=== PATIENT | male | born 1995 | race Caucasian/White ===

== ENCOUNTER 2017-10-25 14:49 | Emergency (ER) | payer OTHER ==
--- NOTE | 2017-10-25 15:06 | ED Physician Documentation ---
General Adult - HISTORIAN Historian: patient - HPI Stated Complaint: sore throat Chief Complaint: General Adult Onset: days ago Timing: still present Severity: moderate Further Comments: yes (Pt is a 22 yo male with a sore throat. Pt has had dark sputum, malaise. No fever.) - ROS CONST: other (malaise) EYES/ENT: sore throat CVS/RESP: cough GI/: none MS/SKIN/LYMPH: none - PAST HX Past History: other (tonsillectomy) - SOCIAL HX Smoking History: cigarettes - FAMILY HX Family History: No - REVIEWED ASSESSMENTS Nursing Assessment Reviewed: Yes Vitals Reviewed: Yes Progress - Progress Progress: Rx [id number] General Adult Physical Exam - PHYSICAL EXAM GENERAL APPEARANCE: mild distress EENT: pharyngeal erythema NECK: normal inspection, supple RESPIRATORY: no resp distress, chest non-tender, breath sounds normal CVS: reg rate & rhythm, heart sounds normal BACK: normal inspection SKIN: warm/dry, normal color EXTREMITIES: non-tender, normal range of motion, no evidence of injury NEURO: oriented X3, motor nml, sensation nml Discharge Clincal Impression: URI (upper respiratory infection) Qualifiers: URI type: unspecified URI Qualified Code(s): J06.9 - Acute upper respiratory infection, unspecified Referrals: Primary Doctor,No [Primary Care Provider] - Condition: Good Disposition: 01 HOME, SELF-CARE Decision to Admit: NO Decision Time: 15:16
[2017-10-25 15:24] VITALS: BP 158/88
== END 2017-10-25 15:22 | disposition home or self-care (01) ==
LOC: ED 14:49
DX: J06.9 Acute upper respiratory infection, unspecified (principal)
CPT/HCPCS: 87070; 87880; 99283

== ENCOUNTER 2017-11-16 11:44 | Emergency (ER) | payer OTHER ==
--- NOTE | 2017-11-16 11:51 | ED Physician Documentation ---
Upper Respiratory Symptoms - HISTORIAN Historian: patient - HPI Stated Complaint: cough Chief Complaint: Cough/ Upper Respiratory Onset: other (4 weeks now all together ) Duration: constant Context: denies: recent foreign travel, insect bite(s), tick(s), recent chemotherapy, multiple patients Severity: moderate Associated Symptoms: chills, sweating, sinus drainage (in the beginning of the illness ), sore throat (first week of illness ), productive cough, shortness of breath. denies: fever, earache, runny nose, sinus pain Worsened by Deep Breath: Yes Further Comments: yes (Per pt report over 4 weeks ago he started sinus pain and drainge. He reports he started to cough at this time and was seen in the ER. He states he was treated and he did finish the medication as directed. He states less than 24 hours after stopping the medications he started to cough again so he started the second round as he was advised. States he is a few days into the second dose and feels his cough is getting worse. He denies a fever but he has not measured it either. He also has known history of MRSA and has had a few more areas come out on his arm and head) - ROS CONST/EYES: denies: eye redness, eye itching CVS/RESP: shortness of breath. denies: chest pain LYMPH: denies: rash, swollen glands GI/: denies: abdominal pain, vomiting, nausea NEURO/PSYCH: denies: dizziness MS/SKIN: joint pain. denies: rash - PAST HX Lung Disease: none PE Risk Factors: none Surgeries/Procedures: none Immunizations: UTD Allergies/Adverse Reactions: Allergies Allergy/AdvReac Type Severity Reaction Status Date / Time sulfamethoxazole Allergy Verified 11/16/17 12:05 [From Bactrim] trimethoprim [From Bactrim] Allergy Verified 11/16/17 12:05 Home Medications: Ambulatory Orders Medication Instructions Recorded Azithromycin [Zithromax] 250 mg PO DAILY #6 tablet 11/13/17 Albuterol Sulfate [Proair HFA] 2 inh IH Q4-6 PRN #1 hfa.aer.ad 11/16/17 Benzonatate [Tessalon] 100 mg PO TID PRN #20 capsule 11/16/17 Methylprednisolone [Medrol] 4 mg PO D #1 tab.ds.pk 11/16/17 - SOCIAL HX Smoking History: non-smoker Alcohol Use: none Drug Use: none - FAMILY HX Family History: none - VITAL SIGNS Vital Signs: Vital Signs Temp Pulse Resp BP Pulse Ox 97.6 F 82 20 142/73 96 11/16/17 11:44 11/16/17 11:44 11/16/17 11:44 11/16/17 11:44 11/16/17 11:44 - REVIEWED ASSESSMENTS Nursing Assessment Reviewed: Yes Vitals Reviewed: Yes Progress - Progress Progress: Discussed lab and chest xray : Normal He has not been on terminologist asthma meds in a while Will need to follow up with PCP to start a treatment plan for asthma ED Results Lab/Radiology - Lab Results Lab Results: Lab Results 11/16/17 11/16/17 12:20 12:20 WBC 7.10 K/ul K/ul (4.00-12.00) RBC 5.67 M/ul H M/ul (3.90-5.20) Hgb 14.5 g/dL g/dL (12.0-18.0) Hct 42.8 % % (37.0-53.0) MCV 75.5 fl L fl (80.0-100.0) MCH 25.6 pg L pg (28.0-34.0) MCHC 33.9 g/dL g/dL (30.0-36.0) RDW 14.3 % % (11.3-14.3) Plt Count 201 K/mm3 K/mm3 (130-400) Neut % (Auto) 59.6 % % (39.0-79.0) Lymph % (Auto) 22.1 % % (16.0-50.0) [place] % (Auto) 10.4 % % (0.0-11.0) Eos % (Auto) 4.5 % % (0.0-6.8) Baso % (Auto) 1.1 (0.0-1.5) Neut # (Auto) 4.2 # k/uL # k/uL (1.4-7.7) Lymph # (Auto) 1.6 # k/uL # k/uL (0.6-4.0) [place] # (Auto) 0.7 # k/uL # k/uL (0.0-0.9) Eos # (Auto) 0.3 # k/uL # k/uL (0.0-0.6) Baso # (Auto) 0.1 # k/uL # k/uL (0.0-0.5) Reactive Lymphs % 2.3 % % (0.0-5.0) Reactive Lymphs # 0.2 # k/uL # k/uL (0.0-0.8) Sodium 135 mmol/L L mmol/L (136-145) Potassium 3.9 mmol/L mmol/L (3.5-5.1) Chloride 99 mmol/L mmol/L (98-107) Carbon Dioxide 28 mmol/L mmol/L (22-30) BUN 11 mg/dL mg/dL (9-20) Creatinine 1.00 mg/dL mg/dL (0.66-1.25) Estimated Creat Clear 563 Est GFR ( Amer) > 60 (60 - ) Est GFR (Non-Af Amer) > 60 (60 - ) Glucose 90 mg/dL mg/dL (74-106) Calcium 8.9 mg/dL mg/dL (8.4-10.2) Total Bilirubin 0.3 mg/dL mg/dL (0.2-1.3) AST 24 U/L U/L (15-46) ALT 59 U/L U/L (13-69) Alkaline Phosphatase 54 U/L U/L (38-126) Total Protein 6.5 g/dL g/dL (6.3-8.2) Albumin 4.0 g/dL g/dL (3.5-5.0) - Radiology Radiology Impressions: Examination: PA and lateral chest. History: Evaluate lung caputo. Findings: PA lateral chest demonstrate a normal cardiac and mediastinal silhouette. No focal infiltrate. No blunting of the costophrenic margins. Osseous structures are appropriate for age. Impression: No acute pulmonary process. Electronically signed on Nov 16, 2017 12:36:31 PM MANAGER DOMESTIC by: Saul Saunders - Orders Orders: ED Orders Category Date Time Status Place IV Lock 1T Care 11/16/17 12:02 Active CHEST 2 VIEW [CHEST P.A.&LAT 2 VIEWS] [RAD] Stat Exams 11/16/17 12:02 Ordered CBC/PLATELET/DIFF Stat Lab 11/16/17 12:20 Completed CMP Stat Lab 11/16/17 12:20 Completed Ipratropium/Albuterol Sulfate [Duoneb] Med 11/16/17 12:02 Discontinued 3 ml NEB NOW ONE Upper Respiratory Symptoms - EXAM General Appearance: no acute distress EENT: eyes nml inspection Respiratory: no resp. distress, rhonchi (lower lobe bilateral with mild expiratory wheezing ) Abdomen: non-tender CVS: reg rate & rhythm, heart sounds normal, equal pulses, no murmur Skin: color nml, no rash, warm,dry Extremities: non-tender, normal range of motion Neuro/Psych: oriented x3, neuro intact, mood/affect nml Discharge Clincal Impression: Asthma Qualifiers: Asthma severity: moderate Asthma persistence: persistent Asthma complication type: with acute exacerbation Qualified Code(s): J45.41 - Moderate persistent asthma with (acute) exacerbation Prescriptions: Albuterol Sulfate [Proair HFA] 2 inh IH Q4-6 PRN #1 hfa.aer.ad PRN Reason: Cough Benzonatate [Tessalon] 100 mg PO TID PRN #20 capsule PRN Reason: Cough Methylprednisolone [Medrol] 4 mg PO D #1 tab.ds.pk Referrals: Primary Doctor,No [Primary Care Provider] - 2 Days Additional Instructions: Medrol dose pack as directed Tessalon Pears as directed Increase fluids Proair inhaler as directed Est care with PCP for terminologist asthma treatment plan [phone] Condition: Stable Disposition: 01 HOME, SELF-CARE Decision to Admit: NO Date of Decison to Admit: 11/16/17 Decision Time: 12:47
[2017-11-16] MEDS ORDERED: IPRATROPIUM/ALBUTEROL SULFATE 3 ML AMPUL.NEB NEB ONE (12:02)
[2017-11-16 12:05] VITALS: BP 142/73
[2017-11-16 12:39] LABS: BASOPHILS % 1.1 (0.0-1.5); EOSINOPHILS % 4.5 % (0.0-6.8); MEAN CORPUSCULAR HEMOGLOBIN 25.6 pg (28.0-34.0); MEAN CORPUSCULAR VOLUME 75.5 fl (80.0-100.0); MONOCYTES % 10.4 % (0.0-11.0); NEUTROPHILS # 4.2 # k/uL (1.4-7.7); eGFR (African) > 60; eGFR (Non-African) > 60
--- NOTE | 2017-11-16 14:11 | Diagnostic Imaging Report ---
YANICK SANCHEZ [facility] [address] [facility] [address] [place], [place]. [address] Report Submission Date: Nov 16, 2017 12:36:31 PM COGNOS REPORT DEVELOPER Patient Study Name: FERDINAND ANDERSON Date: Nov 16, 2017 12:22:11 PM COGNOS REPORT DEVELOPER Modality Type: CR Gender: M Description: CHEST : 89 Institution: [facility] Physician: YANICK SANCHEZ Examination: PA and lateral chest. History: Evaluate lung caputo. Findings: PA lateral chest demonstrate a normal cardiac and mediastinal silhouette. No focal infiltrate. No blunting of the costophrenic margins. Osseous structures are appropriate for age. Impression: No acute pulmonary process. Electronically signed on Nov 16, 2017 12:36:31 PM COGNOS REPORT DEVELOPER by: Saul CABRERA
== END 2017-11-16 13:00 | disposition home or self-care (01) ==
LOC: ED 11:44
DX: J45.41 Moderate persistent asthma with (acute) exacerbation (principal)
CPT/HCPCS: 71020; 80053; 85025; 94640; 99283; S1016

== ENCOUNTER 2017-12-18 11:21 | Outpatient (CLI) | payer OTHER ==
[2017-12-18 12:10] LABS: eGFR (African) > 60; eGFR (Non-African) > 60
[2017-12-18 15:02] LABS: BASOPHILS % 1.9 (0.0-1.5); EOSINOPHILS % 3.6 % (0.0-6.8); MEAN CORPUSCULAR VOLUME 77.7 fl (80.0-100.0); MONOCYTES % 9.7 % (0.0-11.0); NEUTROPHILS # 3.2 # k/uL (1.4-7.7)
== END 2017-12-18 11:22 ==
LOC: LAB 11:21
PROVIDERS: ATTEND Physician Assistant
DX: R25.1 Tremor, unspecified (principal); E66.9 Obesity, unspecified; Z83.49 Family history of other endocrine, nutritional and metabolic diseases; R50.9 Fever, unspecified
CPT/HCPCS: 36415; 80048; 80061; 85025

== ENCOUNTER 2018-05-08 20:42 | Emergency (ER) | payer OTHER ==
--- NOTE | 2018-05-08 20:48 | ED Physician Documentation ---
Upper Respiratory Symptoms - HISTORIAN Historian: patient - PAST HX Allergies/Adverse Reactions: Allergies Allergy/AdvReac Type Severity Reaction Status Date / Time amoxicillin Allergy Unverified 12/15/17 09:44 sulfamethoxazole Allergy Verified 11/16/17 12:05 [From Bactrim] trimethoprim [From Bactrim] Allergy Verified 11/16/17 12:05 - VITAL SIGNS Vital Signs: Vital Signs Temp Pulse Resp BP Pulse Ox 142/73 11/16/17 11:44 Discharge Referrals: Jose Cruz Guzman PA [Primary Care Provider] - 2 Days
[2018-05-08 21:08] VITALS: BP 174/99
--- NOTE | 2018-05-08 21:12 | ED Physician Documentation ---
General Adult - HISTORIAN Historian: patient - HPI Stated Complaint: Rash Chief Complaint: Skin Rash Onset: other (chronic) Timing: still present Severity: mild Further Comments: yes (reports he has cystic acne for years he has not been on his meds recently. He was supposed to work tonight and he was not sure with the area that drained if he could sweat with his job and these areas. He denies a fever. the area on the left side of his chest did open and it did have some drainge. He has some mild pain with touch.) Last known Well Code/Unknown Code: Unknown - ROS CONST: denies: fever EYES/ENT: none CVS/RESP: none GI/: none MS/SKIN/LYMPH: other (cellulitis area on left side of chest ) NEURO/PSYCH: denies: headache, fainting, dizziness - PAST HX Past History: other (cystic acne ) Surgeries/Procedures: none Immunizations: UTD Allergies/Adverse Reactions: Allergies Allergy/AdvReac Type Severity Reaction Status Date / Time amoxicillin Allergy Verified 05/08/18 21:03 sulfamethoxazole Allergy Verified 05/08/18 21:03 [From Bactrim] trimethoprim [From Bactrim] Allergy Verified 05/08/18 21:03 Home Medications: Ambulatory Orders Medication Instructions Recorded Fluticasone Propionate [Flonase 120 spray NS DAILY 05/08/18 Nasal [place]] - SOCIAL HX Smoking History: non-smoker Alcohol Use: none Drug Use: none - FAMILY HX Family History: No - VITAL SIGNS Vital Signs: Vital Signs Temp Pulse Resp BP Pulse Ox 97.5 F L 80 18 174/99 98 05/08/18 20:45 05/08/18 20:45 05/08/18 20:45 05/08/18 20:45 05/08/18 20:45 - REVIEWED ASSESSMENTS Nursing Assessment Reviewed: Yes Vitals Reviewed: Yes ED Results Lab/Radiology - Orders Orders: ED Orders Category Date Time Status CHEST 2VIEW [RAD] Stat Exams 05/08/18 Stop Req General Adult Physical Exam - PHYSICAL EXAM GENERAL APPEARANCE: no distress EENT: eye inspection normal NECK: normal inspection RESPIRATORY: no resp distress, chest non-tender, breath sounds normal CVS: reg rate & rhythm, heart sounds normal, equal pulses, no murmur ABDOMEN: soft, normal bowel sounds SKIN: other (several crusted areas on left chest area. He states the one area drained. No fever ) EXTREMITIES: non-tender NEURO: oriented X3, CN's nml as tested, motor nml, sensation nml, mood/affect nml, cognition normal Discharge Clincal Impression: Cellulitis Qualifiers: Site of cellulitis: other site Qualified Code(s): L03.818 - Cellulitis of other sites Referrals: Jose Cruz Guzman PA [PHYSICIAN AUDIO VISUAL COLLECTIONS COORDINATOR] - 2 Days Additional Instructions: 1. Doxycycline 100 mg BID x 10 days - follow up with provider 2. bleach baths (1 tbs of bleach in a bath) 3. Follow up with PCP in 2-4 days 4. Return to ER for any concerns Condition: Stable Disposition: 01 HOME, SELF-CARE Decision to Admit: NO Date of Decison to Admit: 05/08/18 Decision Time: 21:12
== END 2018-05-08 21:10 | disposition home or self-care (01) ==
LOC: ED 20:42
DX: L03.818 Cellulitis of other sites (principal)
CPT/HCPCS: 99282

== ENCOUNTER 2018-09-10 16:41 | Outpatient (CLI) | payer SELFPAY ==
--- NOTE | 2018-09-10 17:44 | Diagnostic Imaging Report ---
ARMANDO TRAMMELL [facility] [address] [facility] [address] [place] [address]. 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 No fracture. No dislocation. Radial head is within normal limits. No joint effusion Impression: No acute osseous abnormality. Electronically signed on Sep 10, 2018 5:23:24 PM CDT by: Saul CABRERA
--- NOTE | 2018-09-10 18:43 | Diagnostic Imaging Report ---
ARMANDO TRAMMELL [facility] [address] [facility] [address] [place], [place]. 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 No fracture. No dislocation. Radial head is within normal limits. No joint effusion Impression: No acute osseous abnormality. 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 No fracture. No dislocation. Radial head is within normal limits. No joint effusion Impression: No acute osseous abnormality. Addendum electronically signed by Saul Saunders on September 10, 2018 5:55:20 PM CDT MTDD
== END 2018-09-10 16:43 ==
LOC: RAD 16:41
PROVIDERS: ATTEND Family Medicine
DX: M25.522 Pain in left elbow (principal)